=== PATIENT | male | born 1970 | race Two or more races ===

== ENCOUNTER 2017-09-30 06:51 | Outpatient (CLI) | payer OTHER ==
[~2017-09-30 06:51] MED LIST: COZAAR25 MG; OSEL75CA PO; TUSSI PRES-B L120 M1 PO
== END 2017-09-30 07:08 | disposition home or self-care (01) ==
LOC: LAB 06:51
DX: D50.9 Iron deficiency anemia, unspecified (principal); E11.9 Type 2 diabetes mellitus without complications; Z12.11 Encounter for screening for malignant neoplasm of colon; Z12.5 Encounter for screening for malignant neoplasm of prostate; E03.9 Hypothyroidism, unspecified; N39.0 Urinary tract infection, site not specified; E78.5 Hyperlipidemia, unspecified; K29.50 Unspecified chronic gastritis without bleeding

== ENCOUNTER → 2017-10-01 | Outpatient (CLI) | payer OTHER | END | disposition home or self-care (01) | LOC: LAB 16:18 | DX: E11.9 Type 2 diabetes mellitus without complications (principal); Z12.11 Encounter for screening for malignant neoplasm of colon; Z12.5 Encounter for screening for malignant neoplasm of prostate; E03.8 Other specified hypothyroidism; N39.0 Urinary tract infection, site not specified; D50.9 Iron deficiency anemia, unspecified; E78.4 Other hyperlipidemia; K29.50 Unspecified chronic gastritis without bleeding ==

== ENCOUNTER 2018-01-27 07:11 | Outpatient (CLI) | payer OTHER | END 2018-01-27 08:27 | disposition home or self-care (01) | LOC: LAB 07:11 | DX: D51.8 Other vitamin B12 deficiency anemias (principal); D51.3 Other dietary vitamin B12 deficiency anemia; I10 Essential (primary) hypertension; D51.1 Vitamin B12 deficiency anemia due to selective vitamin B12 malabsorption with proteinuria; D51.0 Vitamin B12 deficiency anemia due to intrinsic factor deficiency; D50.8 Other iron deficiency anemias; E03.8 Other specified hypothyroidism; E06.2 Chronic thyroiditis with transient thyrotoxicosis ==

== ENCOUNTER 2018-01-27 08:04 | Outpatient (CLI) | payer OTHER | END 2018-01-27 08:16 | disposition home or self-care (01) | LOC: SONOGRAMA 08:04 | DX: D51.8 Other vitamin B12 deficiency anemias (principal); D51.3 Other dietary vitamin B12 deficiency anemia; D51.1 Vitamin B12 deficiency anemia due to selective vitamin B12 malabsorption with proteinuria; D51.0 Vitamin B12 deficiency anemia due to intrinsic factor deficiency; E03.8 Other specified hypothyroidism; E06.2 Chronic thyroiditis with transient thyrotoxicosis ==

== ENCOUNTER → 2018-02-06 | Outpatient (CLI) | payer OTHER | END | disposition home or self-care (01) | LOC: SONOGRAMA 08:11 | DX: K80.00 Calculus of gallbladder with acute cholecystitis without obstruction (principal); N20.0 Calculus of kidney ==

== ENCOUNTER 2018-06-29 08:00 | Outpatient (CLI) | payer OTHER | END 2018-06-29 08:10 | disposition home or self-care (01) | LOC: LAB 08:00 | DX: I10 Essential (primary) hypertension (principal); D51.1 Vitamin B12 deficiency anemia due to selective vitamin B12 malabsorption with proteinuria; D51.0 Vitamin B12 deficiency anemia due to intrinsic factor deficiency; D50.8 Other iron deficiency anemias; E03.8 Other specified hypothyroidism; E06.3 Autoimmune thyroiditis ==

== ENCOUNTER 2021-03-29 08:29 | Outpatient (CLI) | payer OTHER | END 2021-03-29 08:30 | disposition home or self-care (01) | LOC: LAB 08:29 | PROVIDERS: ATTEND Internal Medicine Hematology & Oncology | DX: I10 Essential (primary) hypertension (principal); R74.02 Elevation of levels of lactic acid dehydrogenase [LDH]; K76.89 Other specified diseases of liver; D50.8 Other iron deficiency anemias; D51.8 Other vitamin B12 deficiency anemias; C25.7 Malignant neoplasm of other parts of pancreas; R97.8 Other abnormal tumor markers; R77.2 Abnormality of alphafetoprotein; D51.3 Other dietary vitamin B12 deficiency anemia; D51.1 Vitamin B12 deficiency anemia due to selective vitamin B12 malabsorption with proteinuria ==